=== PATIENT | male | born 1990 | race American Indian/Alaskan Native ===

== ENCOUNTER 2017-04-19 12:44 | Emergency (ER) | payer MEDICAID, SELFPAY ==
[2017-04-19 12:50] VITALS: BMI 21.8
[2017-04-19 12:55] VITALS: BP 122/75; PULSE 73; RESP 20; TEMP 99; O2SAT 100
[2017-04-19] MEDS ORDERED: cefTRIAXone (Rocephin) 250 mg Inj IM ONE (13:12)
--- NOTE | 2017-04-19 13:33 | ED PDOC ---
HPI: Male Pain Time Seen by Provider: 04/19/17 12:59 Chief Complaint (Nursing): Male Genitourinary Chief Complaint (Provider): Male Genitourinary History Per: Patient History/Exam Limitations: no limitations Onset/Duration Of Symptoms: Other (No symptoms present at this time) Associated Symptoms: denies: Fever, Nausea, Vomiting, Diarrhea, Urinary Symptoms Additional Complaint(s): 26 y/o male patient presenting to the ED with concern for STD exposure. PT states that on Monday his girlfriend went to get tested for STD's and was advised to wait 48 hours for the results. PT states that today he and his girlfriend had an argument and after he left, she called him to state she tested positive for what he thinks is chlamydia. PT states that he came straight to the ED even though he does not currently present with any symptoms because he wants to know if he should get tested himself or just get a treatment before any potential symptoms present themselves. He also states he has not eaten today and tomorrow he will be having a surgery for a hernia. Past Medical History Reviewed: Historical Data, Nursing Documentation, Vital Signs Vital Signs: Last Vital Signs Temp 99 F 04/19/17 12:53 Pulse 73 04/19/17 12:53 Resp 20 04/19/17 12:53 BP 122/75 04/19/17 12:53 Pulse Ox 100 04/19/17 12:53 - Medical History PMH: Migraine - Family History Family History: States: Unknown Family Hx - Home Medications Home Medications: Ambulatory Orders Medication Instructions Recorded Ibuprofen [Motrin Tab] 400 mg PO TID 04/20/17 oxyCODONE/Acetaminophen [Percocet 1 ea PO Q4H #20 tab 04/20/17 5/325 mg Tab] - Allergies Allergies/Adverse Reactions: Allergies Allergy/AdvReac Type Severity Reaction Status Date / Time No Known Allergies Allergy Verified 05/23/16 16:57 Review of Systems ROS Statement: Except As Marked, All Systems Reviewed And Found Negative Constitutional: Negative for: Fever, Chills Cardiovascular: Negative for: Chest Pain Gastrointestinal: Negative for: Nausea, Vomiting, Abdominal Pain, Diarrhea Genitourinary Male: Negative for: Dysuria, Hematuria, Penile Discharge Physical Exam - Reviewed Nursing Documentation Reviewed: Yes Vital Signs Reviewed: Yes - Physical Exam Appears: Positive for: Non-toxic, No Acute Distress Skin: Positive for: Normal Color, Warm Respiratory: Negative for: Respiratory Distress Male Genital Exam: Positive for: other (Pt deferred) Neurologic/Psych: Positive for: Alert, Oriented. Negative for: Motor/Sensory Deficits - ECG O2 Sat by Pulse Oximetry: 100 (RA) Pulse Ox Interpretation: Normal Medical Decision Making Medical Decision Making: Time: 1259 Initial impression: Treatment for Possible Exposure to STD Initial plan: --Azithromycin 1,000mg --cefTRIAXone 250mg genital cultures offered, pt declined Safe sex practices discussed at length Scribe Attestation: Documented by Rossy Otto acting as a scribe for MARY Brownlee MD Scribe Attestation: All medical record entries made by the Scribe were at my direction and personally dictated by me. I have reviewed the chart and agree that the record accurately reflects my personal performance of the history, physical exam, medical decision making, and the department course for this patient. I have also personally directed, reviewed, and agree with the discharge instructions and disposition. Disposition - Clinical Impression Clinical Impression: STD exposure - Patient ED Disposition Is Patient to be Admitted: No - Disposition Disposition: Routine/Home Disposition Time: 13:35 Condition: STABLE Instructions: Sexually Transmitted Diseases (ED)
== END 2017-04-19 13:46 | disposition home or self-care (01) ==
LOC: H.ER 12:44
DX: Z20.2 Contact with and (suspected) exposure to infections with a predominantly sexual mode of transmission (principal)

== ENCOUNTER 2017-04-20 10:55 | Day surgery (SDC) | payer MEDICAID ==
[2017-04-18 14:21] VITALS: BMI 21.8
[2017-04-20] MEDS ORDERED: Lactated Ringer's 1,000 ML IV ONE ×2 (12:07→13:00)
--- NOTE | 2017-04-20 13:20 | PCM.SURG1 ---
Surgeon's Initial Post Op Note - Surgeon's Notes Surgeon: Dr. Degroot Deck Mate: Dr. Prado, PGY2 Type of Anesthesia: General Endo Anesthesia Administered By: Fermin Pre-Operative Diagnosis: Left Inguinal Hernia Operative Findings: same Post-Operative Diagnosis: same Operation Performed: Left Inguinal Hernia repair, with Mesh Specimen/Specimens Removed: hernia sac Estimated Blood Loss: EBL {In ML}: 5 Blood Products Given: N/A Drains Used: No Drains Post-Op Condition: Good Date of Surgery/Procedure: 04/20/17 Time of Surgery/Procedure: 13:19
[2017-04-20] MEDS ORDERED: HYDROmorphone 0.5 mg/0.5 ml ISec IVP PRN (13:28)
[2017-04-20 14:10] VITALS: RESP 18
[2017-04-20 15:45] VITALS: O2SAT 98
[2017-04-20] MEDS ORDERED: Oxycodone/Acetaminophen 5/325 mg Tab PO ONE ×2 (15:55→16:02)
--- NOTE | 2017-04-20 16:32 | CP.SDSHP ---
Same Day Surgery H & P - Allergies Allergies: Allergies No Known Allergies Allergy (Verified 05/23/16 16:57) - Current Medications Current Medications: Home Medication List Medication Instructions Recorded Confirmed Type oxyCODONE/Acetaminophen [Percocet 1 ea PO Q4H #20 tab 04/20/17 Rx 5/325 mg Tab] - Physical Exam Vital Signs: Vital Signs 04/20/17 04/20/17 04/20/17 11:17 13:18 13:30 Temperature 98.6 F 96.7 F L 96.9 F L Pulse Rate 65 92 H 82 Respiratory 18 14 17 Rate Blood Pressure 113/60 137/62 117/75 O2 Sat by Pulse 99 98 100 Oximetry 04/20/17 04/20/17 04/20/17 13:45 14:00 14:15 Temperature 97.3 F L 97.8 F 97.7 F Pulse Rate 77 79 69 Respiratory 17 18 18 Rate Blood Pressure 116/68 117/72 128/83 O2 Sat by Pulse 97 97 97 Oximetry 04/20/17 04/20/17 04/20/17 14:30 14:45 14:52 Temperature 97.9 F 97.8 F Pulse Rate 69 64 Respiratory 18 18 Rate Blood Pressure 124/61 123/64 O2 Sat by Pulse 96 97 97 Oximetry 04/20/17 15:42 Temperature 97.9 F Pulse Rate 59 L Respiratory 18 Rate Blood Pressure 122/68 O2 Sat by Pulse 98 Oximetry Short Stay Discharge - Short Stay Discharge Admitting Diagnosis/Reason for Visit: K40.9 Disposition: HOME/ ROUTINE Medications: oxyCODONE/Acetaminophen [Percocet 5/325 mg Tab] 1 ea PO Q4H #20 tab Referrals: FAMILY PROVIDER,NO [Primary Care Provider] - Follow-up: Surgical clinic 2 weeks Additional Instructions (Diet, Activity): May remove dressing in 2 days prn. Progress Note/Discharge Note with Instructions: Voiding, tolerating po. Dressing dry, intact; no scrotal swelling. Stable postop
[2017-04-20 16:45] VITALS: BP 124/75; PULSE 70; TEMP 98.3
--- NOTE | 2017-04-20 18:38 | OP ---
PROCEDURE DATE: 04/20/2017 SURGEON: Dr. Degroot. SILVER MINER BLASTING: Dr. Prado. ANESTHESIA: General, Dr. Christensen. PREOPERATIVE DIAGNOSIS: Left inguinal hernia. POSTOPERATIVE DIAGNOSIS: Left inguinal hernia. PROCEDURE: Left inguinal hernia repair with mesh. DESCRIPTION OF OPERATION: With the patient in supine position under adequate general anesthesia, the left groin was prepped and draped in the usual sterile manner. A slightly oblique transverse incisi on was made in the right upper groin crease, taken down through the subcutaneous tissue. The externa l oblique layer was identified and cleared, and the external oblique was then opened from the externa l inguinal ring to the internal inguinal ring. The spermatic cord was identified and dissected off t he inguinal floor. There was no gross direct herniation noted beneath the spermatic cord. The cord was dissected and a hernia sac was identified. This was dissected back toward the internal inguinal ring and, at this point, the sac was suture ligated with a 2-0 Prolene suture and the sac was removed as a specimen. The inguinal floor was examined. There was some thinning of the inguinal floor. Ho wever, there was no large defect noted at the internal ring, and as the patient was quite thin, decis ion was made to perform the repair with just a flat mesh reinforcement. The mesh was trimmed to the size of the inguinal floor with the tails extending laterally beyond the internal ring and positioned beneath the spermatic cord, sutured superiorly to the transversalis fascia and inferiorly to the she lving edge of the inguinal ligament with the 2 layers being approximated at the area of the pubic tub ercle. The mesh was fixed with 2-0 Prolene sutures and the tails were approximated lateral to the in ternal ring. When this had been completed, the external oblique was reapproximated over the spermati c cord with running suture of 3-0 Vicryl. Subcutaneous tissue was approximated with a few 3-0 Vicryl interrupted sutures and running subcuticular closure was performed with 4-0 Monocryl and Steri-Strip s. Dry sterile dressing was applied. The patient tolerated the procedure well and transferred to the recovery room in stable condition. Estimated blood loss for the procedure was 5 mL. Iker Degroot MD cc: 58 TT: 04/20/2017 18:38:04 dn
== END 2017-04-20 16:57 | disposition home or self-care (01) ==
LOC: H.OPSURG 10:55
PROVIDERS: ATTEND Specialist
DX: K40.90 Unilateral inguinal hernia, without obstruction or gangrene, not specified as recurrent (principal)

== ENCOUNTER 2018-05-07 22:43 | Emergency (ER) | payer SELFPAY ==
[2018-05-07 22:44] VITALS: BMI 21.8
[2018-05-07 22:50] VITALS: BP 118/75; PULSE 62; RESP 18; TEMP 98.2; O2SAT 100
== END 2018-05-08 00:10 | disposition left against medical advice (07) ==
LOC: H.ER 22:43
DX: Z02.89 Encounter for other administrative examinations (principal)

== ENCOUNTER 2018-05-08 12:52 | Emergency (ER) | payer MEDICAID ==
[2018-05-08 12:53] VITALS: BMI 21.8
[2018-05-08 13:21] VITALS: O2SAT 100
[2018-05-08] MEDS ORDERED: Sodium Chloride 0.9% 1,000 ML IV STA (14:24)
--- NOTE | 2018-05-08 15:00 | ED PDOC ---
HPI: Headache Time Seen by Provider: 05/08/18 13:50 Chief Complaint (Nursing): Headache Chief Complaint (Provider): Atypical Migraine Headache History Per: Patient History/Exam Limitations: no limitations Onset/Duration Of Symptoms: Other (x2 weeks) Current Symptoms Are (Timing): Still Present Severity: None Pain Scale Rating Of: 10 Quality: Squeezing Preceeding Symptoms: Known Migraine Symptoms Associated Symptoms: Photophobia, Nausea. denies: Blurred Vision, Vomiting Additional Complaint(s): 27 year old male with past medical history of migraine presents to the emergency department with an typical migraine headache x2 weeks associated with nausea and photosensitivity. Patient reports that he feels a squeezing pain behind his left eye but this is typical for his migraines. Reports he took motrin for pain. Denies fever, nausea, vomiting, chest pain, shortness of breath , phonosensitivity. NO PRIMARY CARE PROVIDER Past Medical History Reviewed: Historical Data, Nursing Documentation, Vital Signs Vital Signs: Last Vital Signs Temp 97.0 F L 05/08/18 13:19 Pulse 51 L 05/08/18 13:19 Resp 16 05/08/18 13:19 BP 179/89 H 05/08/18 13:19 Pulse Ox 100 05/08/18 13:19 - Medical History PMH: Migraine - Surgical History Surgical History: No Surg Hx - Family History Family History: States: Unknown Family Hx - Social History Current smoker - smoking cessation education provided: Yes (Light Smoker < 10 Cigarettes Daily) Alcohol: None Drugs: Other (smokes marijuana) - Home Medications Home Medications: Ambulatory Orders Medication Instructions Recorded Ibuprofen [Motrin Tab] 400 mg PO TID 04/20/17 oxyCODONE/Acetaminophen [Percocet 1 ea PO Q4H #20 tab 04/20/17 5/325 mg Tab] Ibuprofen [Motrin] 600 mg PO Q6H PRN #20 tab 05/08/18 - Allergies Allergies/Adverse Reactions: Allergies Allergy/AdvReac Type Severity Reaction Status Date / Time No Known Allergies Allergy Verified 05/08/18 13:19 Review of Systems ROS Statement: Except As Marked, All Systems Reviewed And Found Negative Constitutional: Negative for: Fever Eyes: Positive for: Other (photosensitivity) Cardiovascular: Negative for: Chest Pain Respiratory: Negative for: Shortness of Breath Gastrointestinal: Positive for: Nausea. Negative for: Vomiting Neurological: Positive for: Headache (migraine headache) Physical Exam - Physical Exam Appears: Positive for: Uncomfortable (uncomfortble with the light on). Negative for: Non-toxic, No Acute Distress Head Exam: Positive for: ATRAUMATIC, NORMAL INSPECTION, NORMOCEPHALIC Skin: Positive for: Normal Color, Warm, Dry. Negative for: Rash Eye Exam: Positive for: Normal appearance, EOMI, PERRL. Negative for: Nystagmus ENT: Positive for: Normal ENT Inspection. Negative for: Nasal Congestion, Tonsillar Exudate, Tonsillar Swelling Neck: Positive for: Normal, Painless ROM, Supple Cardiovascular/Chest: Positive for: Regular Rate, Rhythm, Chest Non Tender. Negative for: Gallop, Murmur, Tachycardia Respiratory: Positive for: Normal Breath Sounds. Negative for: Rales, Rhonchi, Wheezing, Respiratory Distress Gastrointestinal/Abdominal: Positive for: Normal Exam, Bowel Sounds, Soft. Negative for: Tenderness, Mass, Guarding, Rebound Back: Positive for: Normal Inspection. Negative for: L CVA Tenderness, R CVA Tenderness, Vertebral Tenderness Extremity: Positive for: Normal ROM. Negative for: Tenderness, Calf Tenderness , Deformity, Swelling Neurologic/Psych: Positive for: Alert, practice lead II-XII (intact), Oriented (X3), Cerebellar Tests (normal), Gait (stable). Negative for: Motor/Sensory Deficits , Aphasia, Facial Droop - Laboratory Results Result Diagrams: 05/08/18 15:15 05/08/18 15:15 - ECG O2 Sat by Pulse Oximetry: 100 (RA) Pulse Ox Interpretation: Normal Medical Decision Making Medical Decision Makin Initial Impression 27 year old male presenting with exacerbation of migraine headache Initial Plan: * CMP * CBC * NS 1000 ml IV 999 mls/hr * Reglan 20 mg IVP * Urine Culture * Urinalysis * Reevaluation pt reevaluated, headache resolved, pt stable for dc and outpt follow up with his neurologist whom he states is Dr Hutchins, who he has seen in the past. Documented by Lyly Madden acting as a scribe for Jaycee Martinez MD. All medical record entries made by the Scribe were at my direction and personally dictated by me. I have reviewed the chart and agree that the record accurately reflects my personal performance of the history, physical exam, medical decision making, and the department course for this patient. I have also personally directed, reviewed, and agree with the discharge instructions and disposition. Disposition - Clinical Impression Clinical Impression: Migraine - Patient ED Disposition Is Patient to be Admitted: No Counseled Patient/Family Regarding: Studies Performed, Diagnosis, Need For Followup - Disposition Referrals: [facility] [Outside] Nikolas Hutchins MD [Staff Provider] - Disposition: Routine/Home Disposition Time: 16:00 Condition: IMPROVED Additional Instructions: follow up with your neurologist Dr Hutchins this week return to the ED with any worsening or concerning symptoms Prescriptions: Ibuprofen [Motrin] 600 mg PO Q6H PRN #20 tab PRN Reason: Pain, Moderate (4-7) Instructions: Migraine Headache (DC) Forms: [facility] ([place])
[2018-05-08 15:40] LABS: BASO # 0.1 K/uL (0.0-0.2); BASO % 0.4 % (0.0-2.0); EOS # 0.3 K/uL (0.0-0.7); EOS % 2.4 % (0.0-4.0); HEMOGLOBIN 13.3 g/dL (12.0-18.0); LYMPH # 1.4 K/uL (1.0-4.3); LYMPH % 10.5 % (20.0-40.0); MEAN CELL VOLUME 89.4 fl (80.0-94.0); MEAN CORPUSCULAR HEMOGLOBIN 29.5 pg (27.0-31.0); MEAN PLATELET VOLUME 9.8 fl (7.2-11.7); MONO # 0.5 K/uL (0.0-0.8); MONO % 3.5 % (0.0-10.0); NEUT # 11.5 K/uL (1.8-7.0); NEUT % 83.2 % (50.0-75.0); NRBC % 0.1 % (0.0-0.0); RBC 4.52 Mil/uL (4.40-5.90); RED CELL DISTRIBUTION WIDTH 13.8 % (11.5-14.5); WHITE BLOOD COUNT 13.8 K/uL (4.8-10.8)
[2018-05-08 15:42] LABS: URINE BILIRUBIN NEGATIVE (NEGATIVE); URINE BLOOD NEGATIVE (NEGATIVE); URINE CLARITY CLEAR (Clear); URINE COLOR YELLOW (YELLOW); URINE GLUCOSE (UA) NEG (Normal); URINE LEUKOCYTE ESTERASE NEG Leu/uL (Negative); URINE PROTEIN NEGATIVE (NEGATIVE); URINE UROBILINOGEN 0.2-1.0 mg/dL (0.2-1.0)
[2018-05-08 15:45] LABS: ALB/GLOB RATIO 1.5 (1.0-2.1); ALBUMIN 4.6 g/dL (3.5-5.0); ALT/SGPT 34 U/L (21-72); AST/SGOT 22 U/L (17-59); BLOOD UREA NITROGEN 7 mg/dl (9-20); CALCIUM 10.1 mg/dL (8.4-10.2); GFR AFRICAN-AMERICAN > 60; GFR NON-AFRICAN AMERICAN > 60
[2018-05-08 15:47] LABS: SQUAMOUS EPITHIAL 1 /hpf (0-5)
[2018-05-08 15:48] LABS: URINE BACTERIA RARE (<OCC)
[2018-05-08 16:40] VITALS: BP 135/76; PULSE 53; RESP 14; TEMP 98.2
== END 2018-05-08 16:55 | disposition home or self-care (01) ==
LOC: H.ER 12:52
DX: G43.909 Migraine, unspecified, not intractable, without status migrainosus (principal); F17.210 Nicotine dependence, cigarettes, uncomplicated
CPT/HCPCS: 80053; 81003; 85025; 87086; 96361; 96374; 96375; 99285; J1885; J2765; J7030

== ENCOUNTER 2018-05-20 17:21 | Emergency (ER) | payer MEDICAID ==
[2018-05-20 17:21] VITALS: BMI 21.8
[2018-05-20 17:31] VITALS: RESP 16; TEMP 99.4
[2018-05-20] MEDS: Sodium Chloride 0.9% 1,000 ML IV STA ×2 (18:00→18:30)
--- NOTE | 2018-05-20 18:25 | ED PDOC ---
HPI: Headache Time Seen by Provider: 05/20/18 17:35 Chief Complaint (Nursing): Headache Chief Complaint (Provider): Headache History Per: Patient History/Exam Limitations: no limitations Onset/Duration Of Symptoms: Hrs (x5) Current Symptoms Are (Timing): Still Present Quality: Sharp Associated Symptoms: Other (Photosensitivity) Additional Complaint(s): 27 year old male with a history of migraines presents to the ED with a sharp, left-sided headache associated photosensitivity and nausea onset 1 pm. Patient reports symptoms are similar to prior headaches. He took Tylenol without improvement. Patient denies head trauma, weakness, fever, neck pain or any other medical complaints. He states he saw a neurologist 2 years ago, but has not seen one since. Patient denies alcohol abuse but admits to smoking marijuana. PMD: none provided Past Medical History Reviewed: Historical Data, Nursing Documentation, Vital Signs Vital Signs: Last Vital Signs Temp 99.4 F 05/20/18 17:27 Pulse 45 L 05/20/18 17:27 Resp 16 05/20/18 17:27 BP 175/96 H 05/20/18 17:32 Pulse Ox 100 05/20/18 17:27 - Medical History PMH: Migraine - Surgical History Other surgeries: Knee repair - Family History Family History: States: Unknown Family Hx - Social History Drugs: Cannabis - Home Medications Home Medications: Ambulatory Orders Medication Instructions Recorded Ibuprofen [Motrin Tab] 400 mg PO TID 04/20/17 oxyCODONE/Acetaminophen [Percocet 1 ea PO Q4H #20 tab 04/20/17 5/325 mg Tab] Ibuprofen [Motrin] 600 mg PO Q6H PRN #20 tab 05/08/18 Ibuprofen [Motrin Tab] 600 mg PO Q6 PRN #15 tab 05/20/18 - Allergies Allergies/Adverse Reactions: Allergies Allergy/AdvReac Type Severity Reaction Status Date / Time No Known Allergies Allergy Verified 05/08/18 13:19 Review of Systems ROS Statement: Except As Marked, All Systems Reviewed And Found Negative Gastrointestinal: Positive for: Nausea Neurological: Positive for: Headache Physical Exam - Reviewed Nursing Documentation Reviewed: Yes Vital Signs Reviewed: Yes - Physical Exam Appears: Positive for: Well, No Acute Distress Head Exam: Positive for: ATRAUMATIC, NORMOCEPHALIC Skin: Positive for: Normal Color, Warm, Dry Eye Exam: Positive for: Normal appearance, EOMI, PERRL, Other (mild photosensitivity ) Neck: Positive for: Normal, Painless ROM, Supple Cardiovascular/Chest: Positive for: Regular Rate, Rhythm. Negative for: Murmur Respiratory: Positive for: Normal Breath Sounds. Negative for: Respiratory Distress Gastrointestinal/Abdominal: Positive for: Normal Exam, Soft. Negative for: Tenderness Extremity: Positive for: Normal ROM (upper and lower) Neurologic/Psych: Positive for: Alert, Oriented (x3), Gait (stable), Other ( coordination normal, clear speech). Negative for: Motor/Sensory Deficits Comments: Equal pulses. - ECG O2 Sat by Pulse Oximetry: 100 (RA) Pulse Ox Interpretation: Normal Medical Decision Making Medical Decision Making: Time: 17:59 Initial Plan: --EKG --CMP --CBC with differentials --NS --Reglan 10 mg IVP --Toradol 30 m IV --Zofran 4 mg PO --Old charts reviewed, revealed patient is responsive to migraine intravenous cocktail. Therefore will initiate Reglan and Toradol IV fluid and will reevaluate patient. --Patient refused blood work and imaging. Risks were explained, including failure to identify bleeding, stroke, mass, infection and electrolyte abnormalities among other abnormalities/ re-eval at 850p improved, denies current headache, importance of followup w neurology/ PMD explained. THC avoidance. Scribe Attestation: Documented by Sun Flores, acting as a scribe for John Rajan III, DO Provider Scribe Attestation: All medical record entries made by the Scribe were at my direction and personally dictated by me. I have reviewed the chart and agree that the record accurately reflects my personal performance of the history, physical exam, medical decision making, and the department course for this patient. I have also personally directed, reviewed, and agree with the discharge instructions and disposition Disposition - Clinical Impression Clinical Impression: Acute headache - Patient ED Disposition Is Patient to be Admitted: No Counseled Patient/Family Regarding: Studies Performed, Diagnosis, Need For Followup, Rx Given - Disposition Referrals: Gilmer Pearson MD [Medical Doctor] - Disposition: Routine/Home Disposition Time: 20:45 Condition: STABLE Additional Instructions: See neurologist for further testing. You refused bloodwork and imaging today, it 's possible you have a serious condition that needs further testing or treatment. Prescriptions: Ibuprofen [Motrin Tab] 600 mg PO Q6 PRN #15 tab PRN Reason: Pain, Moderate (4-7) Instructions: Acute Headache (ED) Forms: [facility] ([place])
[2018-05-20 21:15] VITALS: BP 155/79; PULSE 59
[2018-05-20 21:33] VITALS: O2SAT 100
--- NOTE | 2018-05-22 11:15 | CARD ---
APPROVED REPORT Date of service: 05/20/2018 EKG Measurement Heart [id number] <Conclusion> Sinus bradycardia Otherwise normal ECG
== END 2018-05-20 21:07 | disposition home or self-care (01) ==
LOC: H.ER 17:21
DX: R51 Headache (principal)
CPT/HCPCS: 93005; 96374; 99285; J1885; J2765

== ENCOUNTER 2018-06-02 05:21 | Emergency (ER) | payer MEDICAID ==
[2018-06-02 05:21] VITALS: BMI 21.8
[2018-06-02] MEDS ORDERED: Sodium Chloride 0.9% 1,000 ML IV STA (05:58)
--- NOTE | 2018-06-02 06:44 | ED PDOC ---
HPI: Headache Time Seen by Provider: 06/02/18 05:49 Chief Complaint (Nursing): Headache Chief Complaint (Provider): Headache History Per: Patient History/Exam Limitations: no limitations Onset/Duration Of Symptoms: Days (x1) Additional Complaint(s): Patient is a 27 y/o male with no significant past medical history who presents to the ED complaining of headache, onset x1 day ago. Patient describes the headache as a bilateral throbbing sensation that started yesterday; he states that it is similar to multiple prior headaches he has had. He reports associated photosensitivity and episodes of vomiting but denies fever, chest pain, numbness and weakness. Patient took ibuprofen with some relief. Of note, patient states he has been having these headaches for many years which he believes are possibly migraines. PMD: None Past Medical History Reviewed: Historical Data, Nursing Documentation, Vital Signs Vital Signs: Last Vital Signs Temp 97.8 F 06/02/18 05:40 Pulse 46 L 06/02/18 05:40 Resp 17 06/02/18 05:40 BP 166/90 H 06/02/18 05:40 Pulse Ox 100 06/02/18 05:40 - Medical History PMH: Migraine - Surgical History Surgical History: No Surg Hx - Family History Family History: States: Unknown Family Hx - Home Medications Home Medications: Ambulatory Orders Medication Instructions Recorded Ibuprofen [Motrin Tab] 400 mg PO TID 04/20/17 oxyCODONE/Acetaminophen [Percocet 1 ea PO Q4H #20 tab 04/20/17 5/325 mg Tab] Ibuprofen [Motrin] 600 mg PO Q6H PRN #20 tab 05/08/18 Ibuprofen [Motrin Tab] 600 mg PO Q6 PRN #15 tab 05/20/18 - Allergies Allergies/Adverse Reactions: Allergies Allergy/AdvReac Type Severity Reaction Status Date / Time No Known Allergies Allergy Verified 05/08/18 13:19 Review of Systems ROS Statement: Except As Marked, All Systems Reviewed And Found Negative Constitutional: Negative for: Fever Cardiovascular: Negative for: Chest Pain Gastrointestinal: Positive for: Vomiting (non bloody) Neurological: Positive for: Headache. Negative for: Weakness, Numbness Physical Exam - Reviewed Nursing Documentation Reviewed: Yes Vital Signs Reviewed: Yes - Physical Exam Appears: Positive for: No Acute Distress, Uncomfortable Head Exam: Positive for: ATRAUMATIC, NORMOCEPHALIC Skin: Positive for: Normal Color, Warm, Dry Eye Exam: Positive for: EOMI, Normal appearance, PERRL Neck: Positive for: Normal, Painless ROM, Supple Cardiovascular/Chest: Positive for: Regular Rate, Rhythm. Negative for: Murmur Respiratory: Positive for: Normal Breath Sounds. Negative for: Respiratory Distress Gastrointestinal/Abdominal: Positive for: Normal Exam, Soft. Negative for: Tenderness Extremity: Positive for: Normal ROM. Negative for: Pedal Edema, Deformity Neurologic/Psych: Positive for: Alert, quality eng II-XII (intact), Oriented, Mood/ Affect (normal), Cerebellar Tests (negative). Negative for: Motor/Sensory Deficits - ECG O2 Sat by Pulse Oximetry: 100 (RA) Pulse Ox Interpretation: Normal Medical Decision Making Medical Decision Making: Time: 05:58 Impression: recurrent headaches likely migraines Initial Plan: --Sodium chloride 1000 ml IV 1000 mls/hr --Reglan 10 mg --Toradol 30 mg IVP --Tylenol 975 mg PO Time: 06:50 Upon provider reevaluation patient is feeling better, is medically stable, and requires no further treatment in the ED at this time. Counseling was provided and all questions were answered regarding diagnosis and need for follow up with PMD. There is agreement to discharge plan. Return if symptoms persist or worsen. Scribe Attestation: Documented by Alejandro Barbour, acting as a scribe for Jonatan Bravo MD. Provider Scribe Attestation: All medical record entries made by the Scribe were at my direction and personally dictated by me. I have reviewed the chart and agree that the record accurately reflects my personal performance of the history, physical exam, medical decision making, and the department course for this patient. I have also personally directed, reviewed, and agree with the discharge Disposition - Clinical Impression Clinical Impression: Recurrent headache - Patient ED Disposition Is Patient to be Admitted: No Counseled Patient/Family Regarding: Studies Performed, Diagnosis, Need For Followup - Disposition Referrals: [facility] [Outside] Disposition: Routine/Home Disposition Time: 06:50 Condition: IMPROVED Additional Instructions: Return for worsening. Follow up with your PCP in 2-3 days. . Instructions: Headache, Adult (DC)
[2018-06-02 07:11] VITALS: BP 129/79; PULSE 87; RESP 16; TEMP 98.1
[2018-06-02 23:56] VITALS: O2SAT 100
== END 2018-06-02 07:11 | disposition home or self-care (01) ==
LOC: H.ER 05:21
DX: R51 Headache (principal)

== ENCOUNTER 2018-09-04 05:51 | Emergency (ER) | payer MEDICAID, OTHER ==
[2018-09-04 06:13] VITALS: BMI 21.7
[2018-09-04 06:16] VITALS: TEMP 97.8; O2SAT 97
[2018-09-04] MEDS ORDERED: Sodium Chloride 0.9% 1,000 ML IV STA (07:07)
--- NOTE | 2018-09-04 08:30 | ED PDOC ---
HPI: Headache Time Seen by Provider: 09/04/18 06:25 Chief Complaint (Nursing): Headache Chief Complaint (Provider): Headache History Per: Patient History/Exam Limitations: no limitations Onset/Duration Of Symptoms: Hrs (x3) Current Symptoms Are (Timing): Still Present Associated Symptoms: Photophobia Additional Complaint(s): 27 year old male with pmHx of migraines, presents to ED with a complaint of intermittent headaches associated with light sensitivity since 0230 earlier this morning. 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 He denies any fever, chills, diarrhea, or abdominal pain. PCP: none provided Past Medical History Reviewed: Historical Data, Nursing Documentation, Vital Signs Vital Signs: Last Vital Signs Temp 97.8 F 09/04/18 06:00 Pulse 62 09/04/18 06:00 Resp 18 09/04/18 06:00 BP 132/79 09/04/18 06:00 Pulse Ox 97 09/04/18 06:00 - Medical History PMH: Migraine - Surgical History Surgical History: No Surg Hx - Family History Family History: States: Unknown Family Hx - Social History Current smoker - smoking cessation education provided: Yes SMOKER/PACKS PER DAY:: 1 (less than) Alcohol: Occasional Drugs: Denies - Home Medications Home Medications: Ambulatory Orders Medication Instructions Recorded Ibuprofen [Motrin Tab] 400 mg PO TID 04/20/17 oxyCODONE/Acetaminophen [Percocet 1 ea PO Q4H #20 tab 04/20/17 5/325 mg Tab] Ibuprofen [Motrin] 600 mg PO Q6H PRN #20 tab 05/08/18 RX: Ibuprofen [Motrin Tab] 600 mg PO Q6 PRN #15 tab 09/04/18 - Allergies Allergies/Adverse Reactions: Allergies Allergy/AdvReac Type Severity Reaction Status Date / Time No Known Allergies Allergy Verified 09/04/18 06:13 Review of Systems ROS Statement: Except As Marked, All Systems Reviewed And Found Negative Constitutional: Negative for: Fever, Chills Eyes: Positive for: Other (light sensitivity) Gastrointestinal: Negative for: Vomiting, Abdominal Pain, Diarrhea Neurological: Positive for: Headache. Negative for: Weakness, Numbness Physical Exam - Reviewed Nursing Documentation Reviewed: Yes Vital Signs Reviewed: Yes - Physical Exam Appears: Positive for: Non-toxic, No Acute Distress Head Exam: Positive for: ATRAUMATIC, NORMAL INSPECTION, NORMOCEPHALIC Skin: Positive for: Normal Color Eye Exam: Positive for: Normal appearance, EOMI, PERRL ENT: Positive for: Normal ENT Inspection Neck: Positive for: Normal Cardiovascular/Chest: Positive for: Regular Rate, Rhythm Respiratory: Positive for: Normal Breath Sounds. Negative for: Wheezing, Respiratory Distress Gastrointestinal/Abdominal: Positive for: Normal Exam, Soft. Negative for: Tenderness Extremity: Positive for: Normal ROM (upper/lower) Neurologic/Psych: Positive for: Alert (x3), community advocate II-XII (upper/lower extremity strength: 5/5), Oriented, Other (upper and lower strength: 5/5). Negative for: Motor/Sensory Deficits - ECG O2 Sat by Pulse Oximetry: 97 (RA) Pulse Ox Interpretation: Normal Medical Decision Making Medical Decision Making: Initial Impression: Migraine Initial Plan: * Labs * IV fluids * Reglan 10mg IVP Time: 0700 --Patient is signed out to Dr. Bravo pending lab results and re-evaluation. Scribe Attestation: Documented by Sunshine Abrams, acting as a scribe for Jaycee Martinez MD. Provider Scribe Attestation: All medical record entries made by the Scribe were at my direction and personally dictated by me. I have reviewed the chart and agree that the record accurately reflects my personal performance of the history, physical exam, medical decision making, and the department course for this patient. I have also personally directed, reviewed, and agree with the discharge instructions and disposition. Disposition - Clinical Impression Clinical Impression: Migraine - Patient ED Disposition Is Patient to be Admitted: Transfer of Care - Disposition Referrals: Nikolas Hutchins MD [Staff Provider] - Disposition: Transfer of Care Disposition Time: 07:00 Condition: GOOD Additional Instructions: BRANDI BLAKELY, thank you for letting us take care of you today. Your provider was Jonatan Bravo MD and you were treated for MIGRAINE HEADACHE. The emergency medical care you received today was directed at your acute symptoms. If you were prescribed any medication, please fill it and take as directed. It may take several days for your symptoms to resolve. Return to the Emergency Department if your symptoms worsen, do not improve, or if you have any other problems. Please contact your doctor or call one of the physicians/clinics you have been referred to that are listed on the Patient Visit Information form that is included in your discharge packet. Bring any paperwork you were given at discharge with you along with any medications you are taking to your follow up visit. Our treatment cannot replace ongoing medical care by a primary care provider outside of the emergency department. Thank you for allowing the [facility] team to be part of your care today. If you had an X-Ray or CT scan: A Radiologist will review the ED reading if any change in treatment is needed we will contact you. If you had a blood, urine, or wound culture: It will take several days for the results, if any change in treatment is needed we will contact you. If you had an STI test: It will take 48 hours for the results. Please call after 1 week if you have not heard back. Prescriptions: RX: Ibuprofen [Motrin Tab] 600 mg PO Q6 PRN #15 tab PRN Reason: Pain, Moderate (4-7) Instructions: Migraine Headaches in Adults Forms: [employer] ([place]vian)
--- NOTE | 2018-09-04 08:38 | ED PDOC ---
- ECG O2 Sat by Pulse Oximetry: 97 (RA) Pulse Ox Interpretation: Normal Medical Decision Making Medical Decision Making: Time: 07 --Patient is endorsed to provider by Dr. Martinez pending lab results and re- evaluation Time: 802 --Patient refuses to have labs drawn. Toradol 30mg, Tylenol 650mg, and Zofran 4mg PO additionally ordered for symptoms. Time: 826 --Upon provider reevaluation, patient states he is feeling better and wants to leave to go to work. Patient is medically stable with steady gait and vitals. Counseling was provided and all questions were answered regarding diagnosis. There is agreement to discharge plan. Return if symptoms persist or worsen. Clinical Impression: Migraine Scribe Attestation: Documented by Sunshine Abrams, acting as a scribe for Jonatan Bravo MD. Provider Scribe Attestation: All medical record entries made by the Scribe were at my direction and personally dictated by me. I have reviewed the chart and agree that the record accurately reflects my personal performance of the history, physical exam, medical decision making, and the department course for this patient. I have also personally directed, reviewed, and agree with the discharge instructions and disposition. Disposition - Clinical Impression Clinical Impression: Migraine - POA Present On Arrival: None - Disposition Referrals: Nikolas Hutchins MD [Staff Provider] - Disposition: Routine/Home Disposition Time: 08:27 Condition: GOOD Additional Instructions: BRANDI BLAKELY, thank you for letting us take care of you today. Your provider was Jonatan Bravo MD and you were treated for MIGRAINE HEADACHE. The emerg ency medical care you received today was directed at your acute symptoms. If you were prescribed any medication, please fill it and take as directed. It may take several days for your symptoms to resolve. Return to the Emergency Department if your symptoms worsen, do not improve, or if you have any other problems. Please contact your doctor or call one of the physicians/clinics you have been referred to that are listed on the Patient Visit Information form that is included in your discharge packet. Bring any paperwork you were given at discharge with you along with any medications you are taking to your follow up visit. Our treatment cannot replace ongoing medical care by a primary care provider outside of the emergency department. Thank you for allowing the [facility] team to be part of your care today. If you had an X-Ray or CT scan: A Radiologist will review the ED reading if any change in treatment is needed we will contact you. If you had a blood, urine, or wound culture: It will take several days for the results, if any change in treatment is needed we will contact you. If you had an STI test: It will take 48 hours for the results. Please call after 1 week if you have not heard back. Prescriptions: Ibuprofen [Motrin Tab] 600 mg PO Q6 PRN #15 tab PRN Reason: Pain, Moderate (4-7) Instructions: Migraine Headaches in Adults
[2018-09-04 09:00] VITALS: BP 132/76; PULSE 76; RESP 15
== END 2018-09-04 08:30 | disposition home or self-care (01) ==
LOC: H.ER 05:51
DX: G43.909 Migraine, unspecified, not intractable, without status migrainosus (principal); F17.210 Nicotine dependence, cigarettes, uncomplicated